=== PATIENT | female | born 1955 | race Caucasian/White ===

== ENCOUNTER 2017-04-24 08:00 | Outpatient (CLI) | payer OTHER | END 2017-04-24 08:01 | disposition home or self-care (01) | LOC: BICMRI 08:00 | PROVIDERS: ATTEND Podiatrist | DX: M65.872 Other synovitis and tenosynovitis, left ankle and foot (principal); M19.072 Primary osteoarthritis, left ankle and foot; M25.872 Other specified joint disorders, left ankle and foot; M76.62 Achilles tendinitis, left leg; M76.72 Peroneal tendinitis, left leg; S86.312A Strain of muscle(s) and tendon(s) of peroneal muscle group at lower leg level, left leg, initial encounter ==

== ENCOUNTER 2018-04-04 09:53 | Outpatient (CLI) | payer OTHER ==
--- NOTE | 2018-04-04 12:49 | MMO ---
BILATERAL MAMMOGRAMS: History: Screening mammography. Comparison: Multiple exams back to 01-21-09. FINDINGS: Scattered fibroglandular density and benign appearing calcifications. No dominant mass or suspicious calcifications. Study was evaluated with the assistance of computer aided detection. IMPRESSION: BIRADS category 1 - negative. Suggest routine follow up. POS: JONNATHAN
== END 2018-04-04 09:54 | disposition home or self-care (01) ==
LOC: SCSMAMMO 09:53
PROVIDERS: ATTEND Family Medicine
DX: Z12.31 Encounter for screening mammogram for malignant neoplasm of breast (principal)
CPT/HCPCS: 77067

== ENCOUNTER 2020-06-02 09:40 | Outpatient (CLI) | payer MEDICARE ==
--- NOTE | 2020-06-02 10:07 | MMO ---
Bilateral MAMMO Bilat Screen [facility]DI+DE[facility]. CLINICAL HISTORY: Patient is 64 years old and is seen for screening. The patient has the following family history of breast cancer: cousin female. The patient has no personal history of cancer. VIEWS: The views performed were: bilateral craniocaudal with tomosynthesis and bilateral mediolateral oblique with tomosynthesis. FILMS COMPARED: The present examination has been compared to prior imaging studies performed at [facility] on 04/04/2018, at [facility] on 01/12/2015 and 04/21/2016, and at [facility] on 03/04/2010. This study has been interpreted with the assistance of computer-aided detection. MAMMOGRAM FINDINGS: There are scattered fibroglandular densities. There are stable benign appearing calcifications seen in both breasts. There are no suspicious masses, suspicious calcifications, or new areas of architectural distortion. IMPRESSION: THERE IS NO MAMMOGRAPHIC EVIDENCE OF MALIGNANCY. A ROUTINE FOLLOW-UP MAMMOGRAM IN 1 YEAR IS RECOMMENDED. THE RESULTS OF THIS EXAM WERE SENT TO THE PATIENT. ACR BI-RADS Category 2 - Benign finding MAMMOGRAPHY NOTE: 1. A negative mammogram report should not delay a biopsy if a dominant of clinically suspicious mass is present. 2. Approximately 10% to 15% of breast cancers are not detected by mammography. 3. Adenosis and dense breasts may obscure an underlying neoplasm. Reported by: KAMILLE MADRIGAL MD Electonically Signed: [id number]
== END 2020-06-02 09:41 | disposition home or self-care (01) ==
LOC: BICMAMMO 09:40
PROVIDERS: ATTEND Family Medicine
DX: Z12.31 Encounter for screening mammogram for malignant neoplasm of breast (principal); Z80.3 Family history of malignant neoplasm of breast
CPT/HCPCS: 77063; 77067

== ENCOUNTER 2021-06-04 09:10 | Outpatient (CLI) | payer MEDICARE | END 2021-06-04 09:11 | disposition home or self-care (01) | LOC: BICMAMMO 09:10 | PROVIDERS: ATTEND Family Medicine | DX: Z12.31 Encounter for screening mammogram for malignant neoplasm of breast (principal); Z80.3 Family history of malignant neoplasm of breast | CPT/HCPCS: 77063; 77067 ==